=== PATIENT | female | born 1995 | race Caucasian/White ===

== ENCOUNTER 2018-03-14 02:31 | Emergency (ER) | payer OTHER ==
[~2018-03-14] VITALS: Ht 167.6 cm; Wt 59.1 kg
[~2018-03-14 02:31] MED LIST: NAPROSYN500 MG PO; VOLTAREN 75 DR75 MG PO
[2018-03-14 02:35] VITALS: TEMP 97.4
[2018-03-14 02:51] LABS: COLLECTION METHOD CLEAN CATCH
[2018-03-14] MEDS ORDERED: BENTYL 20MG20 MG/TAB PO (02:56)
[2018-03-14 03:01] LABS: BASO # 0.1 (0.0-0.2); BASO % 0.4 % (0.0-2.0); EOS # 0.1 (0.0-0.7); GRAN # 6.3 (1.4-6.5); GRAN % 55.5 % (42.2-75.2); HEMOGLOBIN 9.7 g/dl (12.5-16.0); LYMPH # 3.8 (1.2-3.4); LYMPH % 33.3 % (20.0-51.0); MEAN CELL VOLUME 77 fl (80.0-100.0); MEAN CORPUSCULAR HEMOGLOBIN 24 pg (27.0-31.0); MEAN CORPUSCULAR HGB CONC 31 g/dl (33.0-37.0); MEAN PLATELET VOLUME 11.2 fl (7.4-10.4); MONO # 1.1 (0.1-0.6); MONO % 9.6 % (1.7-9.3); PLATELET COUNT 291 K/mm3 (130-400); RED BLOOD COUNT 3.99 M/mm3 (4.10-5.30); REDCELL DISTRIBUTION WIDTH-CV 13.4 % (11.5-14.5)
[2018-03-14 03:02] LABS: HEMATOCRIT 30.9 % (37.0-47.0)
[2018-03-14 03:07] LABS: ALBUMIN 4.4 gm/dL (3.5-5.0); BILIRUBIN,TOTAL 0.1 mg/dL (0.0-1.0); C-REACTIVE PROTEIN 1.6 mg/dL (0.0-0.9); CALCIUM 8.7 mg/dL (8.4-10.2); CREATININE, serum 0.66 mg/dL (0.52-1.25); POTASSIUM 3.5 mmol/L (3.4-5.0); TOTAL PROTEIN 7.9 gm/dL (6.4-8.2)
[2018-03-14 03:10] LABS: MUCOUS Present /lpf; PH 5 (5-8); SQUAMOUS EPITHELIAL 0-2 /hpf; URINE APPEARANCE Clear; URINE BACTERIA Rare /hpf; URINE BILIRUBIN Negative (NEGATIVE); URINE BLOOD 3+ (NEGATIVE); URINE COLOR Yellow; URINE GLUCOSE Negative (NEGATIVE); URINE KETONE Negative (NEGATIVE); URINE LEUKOCYTE ESTERASE Negative (NEGATIVE); URINE NITRATE Negative (NEGATIVE); URINE PROTEIN(semi-quant) Negative (NEGATIVE); URINE RBC >50 /hpf; URINE UROBILINOGEN Negative (NEGATIVE)
[2018-03-14] MEDS ORDERED: ZOFRAN 4MG T4 MG/TAB PO (03:57)
[2018-03-14] MEDS ORDERED: DOXYCYCLINE HY100 MG PO (03:57)
[2018-03-14] MEDS ORDERED: FLAGYL500 MG PO (03:59)
[2018-03-14 04:12] VITALS: BP 118/64; PULSE 85
== END 2018-03-14 04:12 | disposition home or self-care (01) ==
LOC: COL.ER 02:31
PROVIDERS: Emergency Medicine
DX: N93.9 Abnormal uterine and vaginal bleeding, unspecified (principal); R10.30 Lower abdominal pain, unspecified; R11.2 Nausea with vomiting, unspecified
CPT/HCPCS: J0696; J1885; J2405; J3010; J7030

== ENCOUNTER 2018-03-17 05:34 | Inpatient (IN) | payer OTHER ==
[2018-03-17] VITALS (16 sets, daily range): BP systolic 82–112; BP diastolic 47–75; PULSE 59–92; TEMP 97.8–98.5
[~2018-03-17] VITALS: Ht 167.6 cm; Wt 59.1 kg
[~2018-03-17 05:34] MED LIST changes: +BENTYL 20MG20 MG/TAB PO; +DOXYCYCLINE HY100 MG PO; +FLAGYL500 MG PO; +ZOFRAN 4MG T4 MG/TAB PO
[2018-03-17 06:15] LABS: BASO % 0.4 % (0.0-2.0); EOS % 0.4 % (0-4.0); GRAN # 5.3 (1.4-6.5); GRAN % 72.7 % (42.2-75.2); LYMPH # 1.2 (1.2-3.4); LYMPH % 16.3 % (20.0-51.0); MEAN CELL VOLUME 78 fl (80.0-100.0); MEAN CORPUSCULAR HGB CONC 32 g/dl (33.0-37.0); MEAN PLATELET VOLUME 11.3 fl (7.4-10.4); MONO # 0.7 (0.1-0.6); MONO % 10.1 % (1.7-9.3); PLATELET COUNT 255 K/mm3 (130-400); RED BLOOD COUNT 3.35 M/mm3 (4.10-5.30); REDCELL DISTRIBUTION WIDTH-CV 13.8 % (11.5-14.5)
[2018-03-17 06:17] LABS: HEMOGLOBIN 8.2 g/dl (12.5-16.0); MEAN CORPUSCULAR HEMOGLOBIN 24 pg (27.0-31.0)
[2018-03-17 06:25] LABS: ALBUMIN 4.1 gm/dL (3.5-5.0); BILIRUBIN,TOTAL 0.3 mg/dL (0.0-1.0); C-REACTIVE PROTEIN 2.6 mg/dL (0.0-0.9); CALCIUM 8.9 mg/dL (8.4-10.2); CREATININE, serum 0.76 mg/dL (0.52-1.25); POTASSIUM 3.6 mmol/L (3.4-5.0); TOTAL PROTEIN 7.4 gm/dL (6.4-8.2)
[2018-03-17] MEDS ORDERED: CYTOTEC200 MCG PO (06:25)
[2018-03-17] MEDS ORDERED: ESTARYLLA 35 MC1 TAB PO (06:25)
[2018-03-17 06:44] LABS: COLLECTION METHOD CATHETER
[2018-03-17 07:08] LABS: MUCOUS Present /lpf; PH 8 (5-8); URINE APPEARANCE Turbid; URINE BACTERIA Rare /hpf; URINE BILIRUBIN Negative (NEGATIVE); URINE BLOOD 3+ (NEGATIVE); URINE COLOR Red; URINE GLUCOSE 2+ (NEGATIVE); URINE KETONE 1+ (NEGATIVE); URINE LEUKOCYTE ESTERASE Negative (NEGATIVE); URINE NITRATE Negative (NEGATIVE); URINE PROTEIN(semi-quant) 3+ (NEGATIVE); URINE RBC >50 /hpf; URINE UROBILINOGEN Negative (NEGATIVE)
[2018-03-17 11:45] LABS: MEAN CELL VOLUME 78 fl (80.0-100.0); MEAN CORPUSCULAR HGB CONC 31 g/dl (33.0-37.0); PLATELET COUNT 188 K/mm3 (130-400); RED BLOOD COUNT 2.63 M/mm3 (4.10-5.30); REDCELL DISTRIBUTION WIDTH-CV 13.7 % (11.5-14.5)
[2018-03-17 11:47] LABS: HEMATOCRIT 20.6 % (37.0-47.0); HEMOGLOBIN 6.4 g/dl (12.5-16.0); MEAN CORPUSCULAR HEMOGLOBIN 24 pg (27.0-31.0)
[2018-03-17 13:21] LABS: BAND 8 % (0-10); EOSINOPHIL 1 % (0-4); HYPOCHROMIA 1+; LYMPHOCYTE 22 % (20.0-51.0); MICROCYTOSIS 1+; NEUTROPHILS 66 % (42.0-75.2); NUCLEATED RED BLOOD CELL 1 (0-6); OVALOCYTES 2+; PLATELET ESTIMATE NORMAL (NORMAL)
[2018-03-17 19:25] LABS: BASO % 0.4 % (0.0-2.0); EOS # 0.1 (0.0-0.7); GRAN % 63.7 % (42.2-75.2); LYMPH # 1.9 (1.2-3.4); MEAN CELL VOLUME 82 fl (80.0-100.0); MEAN CORPUSCULAR HGB CONC 32 g/dl (33.0-37.0); MONO # 0.8 (0.1-0.6); MONO % 10.5 % (1.7-9.3); PLATELET COUNT 194 K/mm3 (130-400); RED BLOOD COUNT 3.42 M/mm3 (4.10-5.30); REDCELL DISTRIBUTION WIDTH-CV 15.4 % (11.5-14.5)
[2018-03-17 19:34] LABS: HEMATOCRIT 28.1 % (37.0-47.0); MEAN CORPUSCULAR HEMOGLOBIN 27 pg (27.0-31.0)
[2018-03-17 19:37] LABS: HEMOGLOBIN 9.1 g/dl (12.5-16.0)
[2018-03-18 04:10] VITALS: BP 107/62; PULSE 80; TEMP 98.2
[2018-03-18 07:49] VITALS: BP 104/65; PULSE 73; TEMP 97.8
[2018-03-18] MEDS ORDERED: PERCOCET 325 MG1 TA2 PO (13:13)
== END 2018-03-18 14:50 | disposition home or self-care (01) | DRG 770 ==
LOC: COL.ER 05:34 → SDCO 09:51 → OB 10:40
PROVIDERS: Emergency Medicine; Obstetrics & Gynecology
PROC: 10D17ZZ Extraction of Products of Conception, Retained, Via Natural or Artificial Opening (ICD-10-PCS; principal; 2018-03-17 10:00)
DX: O03.37 Sepsis following incomplete spontaneous abortion (principal); N71.0 Acute inflammatory disease of uterus; D62 Acute posthemorrhagic anemia; O03.1 Delayed or excessive hemorrhage following incomplete spontaneous abortion
CPT/HCPCS: J2210; J2405; J2704; J3010; J7030; J7120; P9016; Q9967

== ENCOUNTER → 2018-04-04 | Outpatient (CLI) | payer OTHER ==
[~2018-04-04] MED LIST changes: +CYTOTEC200 MCG PO; +ESTARYLLA 35 MC1 TAB PO; +PERCOCET 325 MG1 TA2 PO
[2018-04-04 16:30] LABS: BASO % 0.6 % (0.0-2.0); EOS % 0.6 % (0-4.0); GRAN # 1.9 (1.4-6.5); GRAN % 52.9 % (42.2-75.2); LYMPH # 1.2 (1.2-3.4); LYMPH % 34.8 % (20.0-51.0); MEAN CELL VOLUME 80 fl (80.0-100.0); MEAN CORPUSCULAR HGB CONC 31 g/dl (33.0-37.0); MEAN PLATELET VOLUME 11.6 fl (7.4-10.4); MONO # 0.4 (0.1-0.6); MONO % 10.8 % (1.7-9.3); PLATELET COUNT 189 K/mm3 (130-400); RED BLOOD COUNT 3.98 M/mm3 (4.10-5.30); REDCELL DISTRIBUTION WIDTH-CV 14.7 % (11.5-14.5)
[2018-04-04 16:42] LABS: ALBUMIN 4.6 gm/dL (3.5-5.0); BILIRUBIN,TOTAL 0.4 mg/dL (0.0-1.0); CALCIUM 9.2 mg/dL (8.4-10.2); CREATININE, serum 0.59 mg/dL (0.52-1.25); HEMOGLOBIN 9.9 g/dl (12.5-16.0); MEAN CORPUSCULAR HEMOGLOBIN 25 pg (27.0-31.0); POTASSIUM 3.9 mmol/L (3.4-5.0); TOTAL PROTEIN 8.8 gm/dL (6.4-8.2)
[2018-04-05 08:10] LABS: EBV NUCLEAR ANTIGEN IGG Positive (())
[2018-04-05 08:16] LABS: EBV EARLY ANTIGEN IGG Negative (())
[2018-04-05 08:24] LABS: EBV IGM AB Negative (())
== END ==
LOC: COL.LAB 15:50
PROVIDERS: Physician Assistant
DX: R53.83 Other fatigue (principal)

== ENCOUNTER → 2019-05-13 | Outpatient (CLI) | payer OTHER | LOC: COL.RAD 11:42 | DX: Z30.46 Encounter for surveillance of implantable subdermal contraceptive (principal) ==

== ENCOUNTER 2019-06-09 11:11 | Emergency (ER) | payer OTHER ==
[~2019-06-09] VITALS: Ht 167.6 cm; Wt 61.4 kg
[2019-06-09 11:15] VITALS: BP 127/86; TEMP 98.3
[2019-06-09] MEDS ORDERED: NEXPLANON68 MG ID (11:36)
[2019-06-09 12:24] VITALS: PULSE 72
== END 2019-06-09 12:25 | disposition home or self-care (01) ==
LOC: COL.ER 11:11
DX: S13.4XXA Sprain of ligaments of cervical spine, initial encounter (principal); S33.9XXA Sprain of unspecified parts of lumbar spine and pelvis, initial encounter; V89.2XXA Person injured in unspecified motor-vehicle accident, traffic, initial encounter

== ENCOUNTER → 2019-08-01 | Outpatient (CLI) | payer OTHER ==
[~2019-08-01] MED LIST changes: +NEXPLANON68 MG ID
== END ==
LOC: COL.RAD 09:08
DX: M25.511 Pain in right shoulder (principal); Z98.890 Other specified postprocedural states
CPT/HCPCS: A9585; Q9967